=== PATIENT | male | born 1995 | race Caucasian/White ===

== ENCOUNTER 2019-03-01 16:56 | Emergency (ER) | payer OTHER | END 2019-03-01 17:30 | disposition home or self-care (01) | LOC: E/R 17:30 | DX: S50.869A Insect bite (nonvenomous) of unspecified forearm, initial encounter (principal); W57.XXXA Bitten or stung by nonvenomous insect and other nonvenomous arthropods, initial encounter; Y92.9 Unspecified place or not applicable | CPT/HCPCS: 99283; Z7502 ==

== ENCOUNTER 2019-03-24 08:34 | Emergency (ER) | payer OTHER ==
[2019-03-24] MEDS: FLUORESCEIN STRIP LEFT EYE (10:09)
[2019-03-24] MEDS: TETRACAINE 0.5% 4 ML OPH LEFT EYE (10:09)
== END 2019-03-24 11:30 | disposition home or self-care (01) ==
LOC: FTE 08:34
DX: H57.9 Unspecified disorder of eye and adnexa (principal)
CPT/HCPCS: 99283; Z7502